=== PATIENT | male | born 1965 | race Hispanic/Latino ===

== ENCOUNTER 2019-11-07 09:18 | Outpatient (CLI) | payer BC ==
--- NOTE | 2019-11-07 09:37 | RAD ---
EXAM: Lumbar spine: 2 views INDICATIONS: Psoriatic arthritis COMPARISON: None. FINDINGS: Lumbar vertebral maintain normal height and alignment. Disc spaces are maintained. Mild deg enerative spurring. Mild facet hypertrophy. No evidence of spondylolysis or spondylolisthesis. IMPRESSION: Mild degenerative changes as described
--- NOTE | 2019-11-07 09:41 | RAD ---
EXAM: Thoracic spine: Previews INDICATIONS: Psoriatic arthropathy COMPARISON: None. FINDINGS: Vertebral bodies maintain normal height and alignment. Disc spaces are preserved. Mild-to-m oderate hypertrophic osteophytes are seen from the anterior and lateral vertebra. No lytic or blastic process. IMPRESSION: [id number] hypertrophic degenerative change.
== END 2019-11-07 09:19 | disposition home or self-care (01) ==
LOC: BICRAD 09:18
PROVIDERS: ATTEND Internal Medicine Rheumatology
DX: L40.50 Arthropathic psoriasis, unspecified (principal); M47.816 Spondylosis without myelopathy or radiculopathy, lumbar region; M47.814 Spondylosis without myelopathy or radiculopathy, thoracic region
CPT/HCPCS: 72070; 72100